=== PATIENT | male | born 1960 | race Caucasian/White ===

== ENCOUNTER → 2020-06-26 11:27 | Outpatient (CLI) | payer OTHER, SELFPAY ==
--- NOTE | ~2020-06-26 | XR_ITS ---
EXAMINATION: XR lumbar spine 2-3V DATE: 06/26/2020 11:45 INDICATION: Low back pain. Lumbar radiculopathy. TECHNIQUE: 3 views of lumbar spine were obtained. COMPARISON: CT abdomen and pelvis 05/21/2019 FINDINGS: There is 3 degrees dextrocurvature of thoracolumbar spine. Vertebral body heights are camryn l. There is mildly decreased disc height at L4-L5 and L5-S1. There is multilevel facet joint osteoart hritis, severe bilaterally from L3-L4 through L5-S1. IMPRESSION: 1. Mild lumbar spondylosis. Reviewed, dictated and finalized at location A. 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 Mild lumbar spondylosis.
--- NOTE | ~2020-06-26 | XR_ITS ---
EXAMINATION: XR_CERV2-3V_CR EXAM DATE: 06/26/2020 11:45 INDICATION: Cervical radiculopathy. TECHNIQUE: Cervical spine frontal, lateral, lateral swimmers, and open-mouth odontoid projections. There is no prior study for comparison. FINDINGS: Mild to moderate disc disease at C6-7. The vertebral body and disc heights are otherwise w ell maintained. Up to moderate cervical arthropathy. The odontoid process is intact. The lateral mas ses of C1 line up with C2. Prevertebral soft tissue and pre-dens space are within normal limits. Lung apices are clear. IMPRESSION: Mild to moderate cervical spondylosis. Reviewed, dictated and finalized at location B. [facility]
== END ==
PROVIDERS: PCP Family Medicine; Visit Provider Physician Assistant
DX: M47.22 Other spondylosis with radiculopathy, cervical region (principal); M47.896 Other spondylosis, lumbar region
CPT/HCPCS: 72040; 72100

== ENCOUNTER → 2021-01-10 11:54 | Outpatient (CLI) | payer OTHER, SELFPAY ==
--- NOTE | ~2021-01-10 | CT_ITS ---
EXAMINATION:CT lung screening DATE: 01/10/2021 12:06 INDICATION: Personal history of tobacco dependence. Current smoker with 30 pack year history. TECHNIQUE: Computed tomography (CT) of the chest was performed without intravenous contrast. Automate d exposure control and iterative reconstruction technique were employed. The dose-length product (DLP ) was 182.56 mGy-cm. COMPARISON: Chest CT 05/21/2018 FINDINGS: There is mild emphysema. Calcified left lung nodules and calcified left hilar and mediastin al lymph nodes are consistent with old granulomatous disease. No pleural effusion. The heart size is normal. There are coronary artery calcifications. No pericardial effusion. There is moderate thoracic spondylosis. IMPRESSION: 1. Lung-RADS category 1: Negative. Continue annual screening with noncontrast low-dose chest CT in 12 months. Reviewed, dictated and finalized at location A. IMPRESSION: 1. Lung-RADS category 1: Negative. Continue annual screening with noncontrast l ow-dose chest CT in 12 months.
== END ==
PROVIDERS: Visit Provider Family Medicine
DX: Z87.891 Personal history of nicotine dependence (principal)
CPT/HCPCS: 71271

== ENCOUNTER 2021-04-26 12:04 | Emergency (ER) | payer OTHER, SELFPAY ==
--- NOTE | ~2021-04-26 | XR_ITS ---
EXAMINATION: XR chest 2V DATE: 04/26/2021 12:24 INDICATION: Cough. TECHNIQUE: Frontal and lateral views of the chest were obtained. COMPARISON: Chest 2 views 05/21/2019, chest CT 01/10/2021 FINDINGS: The chest demonstrates clear lungs without pneumonia, pleural effusion, or pneumothorax. Th e heart size is normal. Calcified left hilar and mediastinal lymph nodes are consistent with old gran ulomatous disease. IMPRESSION: 1. No acute cardiopulmonary disease. Reviewed, dictated and finalized at location A.
--- NOTE | 2021-04-26 12:11 | ED.URI ---
HPI - URI/Sore Throat General Chief Complaint: Upper Respiratory Infection Stated Complaint: Cough Time Seen by Provider: 04/26/21 12:12 Source: patient, RN notes reviewed and old records reviewed Mode of arrival: ambulatory Limitations: no limitations History of Present Illness HPI Narrative: 60-year-old male presents to the [facility] with complaints of a cough for the last 9-10 days. Has taken ibuprofen and some medication that has DM minute. States that for 6 days with the first has slightly improved but the coughing at night is keeping him awake. Denies chest pains, fevers, nausea, vomiting or diarrhea. Denies abdominal pain Her past medical history has had Covid in July 2020. Patient reports that he is fully vaccinated with [employer], last Covid vaccine was September 2020 History of high cholesterol, denies any other medical or surgical history. Related Data Home Medications Medication Instructions Recorded Confirmed atorvastatin 20 mg PO DAILY 04/26/21 04/26/21 Allergies Allergy/AdvReac Type Severity Reaction Status Date / Time Penicillins Allergy Unknown Skin Verified 04/26/21 12:18 Reaction Review of Systems Review of Systems: All systems reviewed & are unremarkable except as noted in HPI and below Constitutional: Constitutional: Reports no additional constitutional complaints, Denies chills and Denies fever(s) ENT: Reports system reviewed and no additional complaints, except as documented, Denies nasal congestion and Denies sore throat Cardiovascular: Cardiovascular: Reports no additional cardiovascular complaints and Denies chest pain Respiratory: Respiratory: Reports as per HPI, Denies chest congestion, Reports cough, Denies dyspnea and Denies wheezing Gastrointestinal: Gastrointestinal: Reports no additional gastrointestinal complaints and Denies abdominal pain Musculoskeletal: Musculoskeletal: Reports no additional musculoskeletal complaints Integumentary/Breasts: Skin/Breast: Reports system reviewed and no additional complaints, except as docu Neurologic: Reports system reviewed and no additional complaints, except as documented Psychiatric: Psychiatric: Reports no additional psychiatric complaints Allergic/Immunologic: Allergic/Immunologic: Reports no additional allergic/immunologic complaints [facility] Past Medical History Medical History (Updated 04/26/21 @ 12:47 by Laney Pepper) High cholesterol Surgical History Surgical History (Updated 04/26/21 @ 12:24 by Laney Pepper) No significant past surgical history Family History Family History Father Family history of elevated blood lipids Family history of cardiovascular disease Acute myocardial infarction Malignant neoplasm of prostate, Onset Age: 58 Grandparent Family history of cardiovascular disease, Onset Age: 60 Cerebrovascular accident Family history of lung cancer Sibling Malignant neoplasm of prostate, Onset Age: 52 Social History Social History Smoking status: Current some day smoker Alcohol intake: current Gender identity (if verbalized by the patient): Male Comments At the time of my signature, I reviewed and agree with the nursing past medical, surgical, social, and family history. There is no relevant family history pertinent to the patient complaint. Exam Const: General: healthy appearing, no acute distress and alert Nutritional Appearance: well nourished Orientation/consciousness: patient oriented x3 Limitations: no limitations HENMT: Head: normal to inspection Ears: external ears normal, TM's normal bilaterally and EAC's normal Eyes: Conjunctivae: conjunctivae normal Pupils: Equal, round and reactive pupils present Neck: Neck: normal visual inspection, no lymphadenopathy and no meningeal signs Chest: Chest palpation & inspection: normal inspection of the chest Resp: Effort & Inspection:
[2021-04-26 12:12] VITALS: BP 158/74; PULSE 83; RESP 16; TEMP 36.8; O2SAT 99
== END 2021-04-26 12:53 | disposition home or self-care (01) ==
PROVIDERS: Emergency Provider Nurse Practitioner; PCP Physician Assistant
DX: J40 Bronchitis, not specified as acute or chronic (principal); F17.200 Nicotine dependence, unspecified, uncomplicated; E78.00 Pure hypercholesterolemia, unspecified; Z86.16 Personal history of COVID-19
CPT/HCPCS: 71046; 99213; G0463

== ENCOUNTER 2021-06-21 00:15 | Day surgery (SDC) | payer OTHER, SELFPAY ==
[2021-06-07 14:42] VITALS: BMI 30.4
[2021-06-21 06:55] VITALS: BP 138/63; PULSE 93; RESP 18; TEMP 36.4; O2SAT 99; BMI 30.5
--- NOTE | 2021-06-21 07:17 | WPDANESEPPF ---
Anes - Initial Pre Proc Eval Procedure: Operation Date: 06/21/21 08:00 Proposed Procedures p Screening Colonoscopy - Deshaun Hernandez MD Date/Time: 06/21/21 07:17 Surgeon: Deshaun Hernandez MD Pre Op Diagnosis: neoplasm screening, hx colon polyps Patient Data Age: 60 Gender: M Height: 1.73 m Weight: 91.2 kg Last Vital Signs Temp 36.4 C L 06/21/21 06:55 Pulse 93 06/21/21 06:55 Resp 18 06/21/21 06:55 BP 138/63 06/21/21 06:55 Pulse Ox 99 06/21/21 06:55 Allergies Allergy/AdvReac Type Severity Reaction Status Date / Time Penicillins Allergy Unknown Skin Verified 06/21/21 07:05 Reaction Home Medications Medication Instructions Recorded Confirmed Type atorvastatin 20 mg tablet 20 mg PO DAILY #90 tablet 05/23/21 06/21/21 Rx Patient hx anesthesia problems: none Family hx anesthesia problems: none Results Review: All pre-operative results and documents have been reviewed as part of the pre-operative evaluation. [facility] Past Medical History Medical History (Updated 04/27/21 @ 00:00 by Carlos Islas) High cholesterol Surgical History Surgical History No significant past surgical history Family History Family History Father Family history of elevated blood lipids Family history of cardiovascular disease Acute myocardial infarction Malignant neoplasm of prostate, Onset Age: 58 Grandparent Family history of cardiovascular disease, Onset Age: 60 Cerebrovascular accident Family history of lung cancer Sibling Malignant neoplasm of prostate, Onset Age: 52 Social History Social History Smoking status: Current every day smoker Tobacco type: cigarettes Alcohol intake: current Living arrangements: with family Gender identity (if verbalized by the patient): Male Spiritual care concerns: No Anes - Eval Final PreProcedure Day of Procedure 06/21/21 07:17 Patient weight: overweight Heart: regular rate and rhythm Lungs: clear to auscultation Airway: Mallampati scale class II Neurological: alert and oriented Last oral intake: >/= 8 hours ASA classification: III Emergent: no Anesthetic plan: proceed Anesthesia type and monitoring: general GIVS and standard monitoring Results Review: All pre-operative results and documents have been reviewed as part of the pre-operative evaluation. Informed Consent: The patient's anesthetic plan and its attendant risks and benefits were discussed with the patient/family/POA. Questions were solicited and answers provided to the satisfaction of the patient/family/POA.
[2021-06-21] MEDS: LACTATED RINGERS 1,000 ML 150 ML IV CONT (07:22)
--- NOTE | 2021-06-21 07:53 | WPDGICN ---
Assessment and Plan Assessment and plan (1) History of colon polyps: Code(s): Z86.010 - Personal history of colonic polyps Status: Acute Assessment and Plan: Patient has a history of adenomatous colon polyp removed from the colon by colonoscopy in 2016. He presents today for neoplasia screening follow-up. GI Consult Note Consult date/time: 06/21/21 07:53 HPI: Deshaun Oquendo is a 60 year old male Presents for screening colonoscopy. Patient reports that his current weight appetite and bowel movements are normal. He denies abdominal pain. He has had no bleeding. Family history is significant is father may have had colon polyps. Patient reports a prior colon polyp removed from the colon a colonoscopy in 2016. He presents today for neoplasia screening. [facility] Past Medical History Medical History (Updated 06/21/21 @ 07:55 by Deshaun Hernandez MD) High cholesterol Surgical History Surgical History No significant past surgical history Family History Family History Father Family history of elevated blood lipids Family history of cardiovascular disease Acute myocardial infarction Malignant neoplasm of prostate, Onset Age: 58 Grandparent Family history of cardiovascular disease, Onset Age: 60 Cerebrovascular accident Family history of lung cancer Sibling Malignant neoplasm of prostate, Onset Age: 52 Social History Social History Smoking status: Current every day smoker Tobacco type: cigarettes Alcohol intake: current Living arrangements: with family Gender identity (if verbalized by the patient): Male Spiritual care concerns: No Meds Home Medications and Allergies Home Medications Medication Instructions Recorded Confirmed Type atorvastatin 20 mg tablet 20 mg PO DAILY #90 tablet 05/23/21 06/21/21 Rx Allergies Allergy/AdvReac Type Severity Reaction Status Date / Time Penicillins Allergy Unknown Skin Verified 06/21/21 07:05 Reaction Vital Signs Vital Signs - 24 hr 06/21/21 06:55 Temperature 97.5 F L Pulse Rate 93 Respiratory Rate 18 Blood Pressure 138/63 Pulse Oximetry 99 Exam Narrative: Physical exam reveals patient to be alert. Vital signs stable. HEENT exam is unremarkable. Patient is anicteric. Lungs are clear to auscultation and percussion. Heart is without murmur or extra sounds. Abdominal exam bowel sounds are present soft nontender with no organomegaly. Digital external rectal exam is normal.
[2021-06-21 08:21] VITALS: BP 85/40; PULSE 66; RESP 16; O2SAT 98
[2021-06-21 08:31] VITALS: BP 99/40; PULSE 73; RESP 17; O2SAT 99
[2021-06-21 08:41] VITALS: BP 119/71; PULSE 75; RESP 15; O2SAT 99
== END 2021-06-21 08:50 | disposition home or self-care (01) ==
PROVIDERS: PCP Physician Assistant; Visit Provider Internal Medicine Gastroenterology
PROC: 0DJD8ZZ Inspection of Lower Intestinal Tract, Via Natural or Artificial Opening Endoscopic (ICD-10-PCS; CPT 45378; principal; 2021-06-21 08:00)
DX: Z12.11 Encounter for screening for malignant neoplasm of colon (principal); D12.4 Benign neoplasm of descending colon; D12.5 Benign neoplasm of sigmoid colon; K57.30 Diverticulosis of large intestine without perforation or abscess without bleeding; K64.8 Other hemorrhoids; E78.00 Pure hypercholesterolemia, unspecified; Z87.891 Personal history of nicotine dependence
CPT/HCPCS: 45385; 88305; J2704; J7120

== ENCOUNTER 2021-09-23 16:57 | Emergency (ER) | payer OTHER, SELFPAY ==
[2021-09-23 17:05] VITALS: BP 160/83; PULSE 82; RESP 18; TEMP 36.6; O2SAT 98
--- NOTE | 2021-09-23 17:23 | ED.URI ---
HPI - URI/Sore Throat General Chief Complaint: Upper Respiratory Infection Stated Complaint: Cough,Congestion Time Seen by Provider: 09/23/21 17:20 Source: patient, RN notes reviewed and old records reviewed Mode of arrival: ambulatory Limitations: no limitations History of Present Illness HPI Narrative: 60 year old male [facility] constant cough which is at times productive for the past 7-10 days . Patient reports that he was here previously with same symptoms and what they gave him cleared him right up. Patient continues to use tobacco daily of 1ppd, denies any shortness of breath or any chest pain. He admits to some clear sinus drainage, denies any sore throat or ear pain. Patient reports that he had no known fevers, chills or sweats, had been taking Mucinex D and NyQuil for his symptoms. MD elicited complaint: cough and other (feels like wheezing at night) Related Data Home Medications Medication Instructions Recorded Confirmed pantoprazole [Protonix] 40 mg PO PRN PRN 09/23/21 09/23/21 Allergies Allergy/AdvReac Type Severity Reaction Status Date / Time Penicillins Allergy Mild Skin Verified 09/23/21 17:07 Reaction Review of Systems Review of Systems: CONSTITUTIONAL: Denies fever, chills, or sweats. EYES: Denies visual changes, redness, or discharge. ENT: Positive for rhinorrhea, congestion, no sore throat, or otalgia. CARDIOVASCULAR: Denies chest pain, palpitations, or edema. RESPIRATORY: Positive for cough denies dyspnea. GASTROINTESTINAL: Denies abdominal pain, nausea, vomiting, or diarrhea. GENITOURINARY: Denies dysuria or hematuria. SKIN: Denies rash or itching. MUSCULOSKELETAL: Denies back pain, joint pain, or myalgia. NEUROLOGIC: Denies headache, numbness, or weakness. PSYCHIATRIC: Denies anxiety or depression. All systems reviewed & are unremarkable except as noted in HPI and below [facility] Past Medical History Medical History (Updated 09/23/21 @ 17:55 by Yamilet Byrne NP) High cholesterol Tobacco abuse Surgical History Surgical History No significant past surgical history Family History Family History Father Family history of elevated blood lipids Family history of cardiovascular disease Acute myocardial infarction Malignant neoplasm of prostate, Onset Age: 58 Grandparent Family history of cardiovascular disease, Onset Age: 60 Cerebrovascular accident Family history of lung cancer Sibling Malignant neoplasm of prostate, Onset Age: 52 Social History Social History Smoking status: Current every day smoker Tobacco type: cigarettes Alcohol intake: current Gender identity (if verbalized by the patient): Male Spiritual care concerns: No Comments At time of signature, agree with nursing past medical, surgical, social and family history. There is no relevant family history pertinent to the presenting complaint Exam Narrative: GENERAL: Well-appearing, well-nourished, and in no acute distress. HEAD: Normocephalic, atraumatic. EYES: PERRLA and EOMI. ENT: Nares patent, clear rhinorrhea or epistaxis. Mucous membranes moist.TM's normal with good light reflex, throat pink with no lesions or exudates, no tonsil enlargement, has had previous lesion removed from tongue. NECK: Supple. no lymphadenopathy CHEST: faint expiratory wheezes scattered on auscultation. No respiratory distress.SAO2 98% on room air HEART: Regular rate and rhythm. No murmur heard. Normal peripheral pulses. ABDOMEN: Soft, nontender, nondistended, normal active bowel sounds. EXTREMITIES: Normal range of motion. No edema. SKIN: Warm, dry, no rash. NEURO: No focal deficits. Alert and oriented x3. Course Course Level of Care: Express Care Visit Vital Signs Vital signs: Vital Signs Temperature 36.6 C 09/23/21 17:05 Pul
== END 2021-09-23 17:44 | disposition home or self-care (01) ==
PROVIDERS: Emergency Provider Registered Nurse; PCP Physician Assistant
DX: J40 Bronchitis, not specified as acute or chronic (principal); F17.210 Nicotine dependence, cigarettes, uncomplicated; E78.00 Pure hypercholesterolemia, unspecified
CPT/HCPCS: 99213; G0463

== ENCOUNTER → 2022-05-26 11:45 | Outpatient (CLI) | payer OTHER, SELFPAY ==
--- NOTE | ~2022-05-26 | CT_ITS ---
EXAMINATION: CT lung screening DATE: 05/26/2022 12:03 INDICATION: Lung cancer screening. Current smoker. TECHNIQUE: Computed tomography (CT) of the chest was performed without intravenous contrast. The dose -length product was 213.88 mGy-cm. Automated exposure control and iterative reconstruction technique were employed. COMPARISON: CT dated 01/10/2021 FINDINGS: Heart size is normal. No thoracic lymphadenopathy. There is evidence for chronic granulomat ous disease. No significant pleural or pericardial effusion. There is emphysema. There is coronary at herosclerosis. Moderate thoracic spondylosis. No focal airspace disease. No noncalcified pulmonary no dules/masses. The upper abdomen is unremarkable. No endobronchial lesions. No pneumothorax. No focal airspace consolidation. IMPRESSION: 1. Lung-RADS category 1: Negative. Continue annual screening with noncontrast low-dose chest CT in 12 months. Reviewed, dictated and finalized at location B. IER CREDIT IMPRESSION: 1. Lung-RADS category 1: Negative. Continue annual screening with noncontrast l ow-dose chest CT in 12 months.
--- NOTE | ~2022-05-26 | XR_ITS ---
EXAM: XR_CERV2-3V_CR DATE: 05/26/2022 11:56 HISTORY: no injury bilat hand numbness for 4 weeks . COMPARISON: 06/26/2020. FINDINGS: Craniocervical association and atlantoaxial joint are aligned. Mild degenerative change at the atlantoaxial joint. No prevertebral soft tissue swelling. Vertebral bodies are aligned. Vertebra l body heights are maintained. Mild multilevel disc space narrowing and marginal osteophytosis/uncove rtebral joint hypertrophy, moderate at C6-7. Mild facet hypertrophy. IMPRESSION: Multilevel degenerative disc disease and facet arthropathy. Reviewed, dictated and finalized at location K. ER SALESMAN
== END ==
PROVIDERS: PCP Physician Assistant; Visit Provider Physician Assistant
DX: Z12.2 Encounter for screening for malignant neoplasm of respiratory organs (principal); M50.30 Other cervical disc degeneration, unspecified cervical region
CPT/HCPCS: 71271; 72040

== ENCOUNTER 2022-11-06 10:16 | Outpatient (NON) | payer OTHER, SELFPAY | END 2022-11-06 10:17 | disposition home or self-care (01) | LOC: ANHLAB 11-07 10:18 | PROVIDERS: PCP Family Medicine; Visit Provider Internal Medicine Gastroenterology | DX: R22.2 Localized swelling, mass and lump, trunk (principal) | CPT/HCPCS: 88305 ==

== ENCOUNTER 2023-03-29 09:25 | Emergency (ER) | payer OTHER, SELFPAY ==
[2023-03-29 10:02] VITALS: BP 122/61; PULSE 68; RESP 18; TEMP 36.6; O2SAT 97
--- NOTE | 2023-03-29 10:55 | ED.GENADULT ---
HPI - General Adult General Chief complaint: Upper Respiratory Infection Stated complaint: Cough,Congestion,Fatigue Time Seen by Provider: 03/29/23 10:56 Source: patient Mode of arrival: ambulatory Limitations: no limitations History of Present Illness HPI narrative: 60-year-old male patient presents to the [facility] with complaints of congestion, runny nose, cough and sinus pressure. Patient denies any chest pain or shortness of breath. Patient is an active smoker. Patient states he did test positive COVID about 2 and half weeks ago by his symptoms from COVID had completely resolved. Patient states he started having these symptoms approximately 3 days ago. Patient states he has tried [id number] NyQuil, DayQuil and Mucinex for symptoms. Related Data Allergies Allergy/AdvReac Type Severity Reaction Status Date / Time Penicillins AdvReac Mild Hives Verified 03/29/23 10:13 Review of Systems Review of Systems: CONSTITUTIONAL: Denies fever, chills, or sweats. EYES: Denies visual changes, redness, or discharge. ENT: Positive rhinorrhea, congestion, denies sore throat, or otalgia. CARDIOVASCULAR: Denies chest pain, palpitations, or edema. RESPIRATORY: positive cough , denies dyspnea. GASTROINTESTINAL: Denies abdominal pain, nausea, vomiting, or diarrhea. GENITOURINARY: Denies dysuria or hematuria. SKIN: Denies rash or itching. MUSCULOSKELETAL: Denies back pain, joint pain, or myalgia. NEUROLOGIC: Denies headache, numbness, or weakness. PSYCHIATRIC: Denies anxiety or depression. [facility] Past Medical History Medical History (Updated 03/29/23 @ 11:07 by KAITY Martinez) Adjustment disorder with depressed mood Benign neoplasm of colon High cholesterol Palpitations Polyp of colon Primary insomnia Psychosexual dysfunction with inhibited sexual excitement Sciatica of right side Tobacco abuse Unspecified hemorrhoids without mention of complication Surgical History Surgical History No significant past surgical history Family History Family History Father Family history of elevated blood lipids Family history of cardiovascular disease Acute myocardial infarction Malignant neoplasm of prostate, Onset Age: 58 Grandparent Family history of cardiovascular disease, Onset Age: 60 Cerebrovascular accident Family history of lung cancer Sibling Malignant neoplasm of prostate, Onset Age: 52 Social History Social History Smoking status: Current every day smoker Tobacco type: cigarettes Alcohol intake: former Substance use: never Lack of Transportation: No Lack of Food: Never True Current Housing: I Have Housing Concerned About Future Housing: No Difficulty Paying Gas/Electric Bills: No Difficulty Paying for Meds: No Currently Unemployed: No Education: Bachelor's Degree Living arrangements: with family Gender identity (if verbalized by the patient): Male Spiritual care concerns: No Agree to blood products: Yes Comments At the time of my signature I agree with nursing past medical history, surgical, social, and family history. There is no relevant family history pertinent to the presenting complaint. Exam Narrative: GENERAL: Well-appearing, well-nourished, and in no acute distress. HEAD: Normocephalic, atraumatic. tenderness noted to frontal maxillary sinuses on palpati EYES: PERRLA and EOMI. ENT: Nares with erythema and edema noted bilaterally, clear rhinorrhea , no epistaxis. Mucous membranes moist. posterior pharynx with postnasal drip present. Bilateral TMs are clear no erythema foreign bodies the canal. NECK: Supple. No lymphadenopathy CHEST: Clear to auscultation. No respiratory distress. HEART: Regular rate and rhythm. No murmur heard. Normal peripheral pulses. ABDOMEN: Soft, nontender, nondistende
== END 2023-03-29 11:10 | disposition home or self-care (01) ==
PROVIDERS: Emergency Provider Nurse Practitioner Family; PCP Family Medicine
DX: J32.9 Chronic sinusitis, unspecified (principal); T78.40XA Allergy, unspecified, initial encounter; F17.210 Nicotine dependence, cigarettes, uncomplicated; E78.00 Pure hypercholesterolemia, unspecified; Z86.16 Personal history of COVID-19
CPT/HCPCS: 99213; G0463

== ENCOUNTER → 2023-06-18 12:44 | Outpatient (CLI) | payer OTHER, SELFPAY ==
--- NOTE | ~2023-06-18 | CT_ITS ---
CT Scan of the Chest without Contrast: Clinical Indication: Lung cancer screening, personal history of nicotine dependence Technique: Contiguous sections were acquired throughout the chest without intravenous contrast. Dose reduction technique was used on this scan by utilizing automated exposure control and iterative recon struction technique. The dose-length product (DLP) was 197.29 mGy-cm. COMPARISON: 05/26/2022 Findings: There is no evidence of any significant mediastinal, hilar or axillary lymphadenopathy. Calcified med iastinal and left hilar lymph nodes are present. The mediastinal soft tissues otherwise appear normal . There is no evidence of pleural or pericardial effusion. Calcified left basilar granuloma present. Additional calcified left lower lobe granuloma present. Images through the upper abdomen reveal no abnormalities. Impression: Lung RADS 2: Benign appearance. 12 month follow-up screening CT advised. Reviewed, dictated and finalized at location . 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 12 month follow-up screening CT advised.
== END ==
PROVIDERS: PCP Family Medicine; Visit Provider Family Medicine
DX: Z12.2 Encounter for screening for malignant neoplasm of respiratory organs (principal); F17.210 Nicotine dependence, cigarettes, uncomplicated
CPT/HCPCS: 71271

== ENCOUNTER 2023-11-12 16:21 | Outpatient (CLI) | payer OTHER, SELFPAY ==
--- NOTE | ~2023-11-12 | XR_ITS ---
EXAMINATION: XR hip LT min 2V DATE: 11/12/2023 16:51 INDICATION: Left hip pain TECHNIQUE: Anteroposterior and frog-leg lateral views of the left hip were obtained. COMPARISON: CT abdomen pelvis dated 05/21/2019 FINDINGS: Alignment is normal. No fracture or suspected osteonecrosis. Mild left hip osteoarthritis with body builder ior predominant nonuniform joint space narrowing best appreciated on the prior CT imaging. Bilateral vasectomy clips at the scrotum. Soft tissues are otherwise unremarkable. IMPRESSION: 1. Mild left hip osteoarthritis. Reviewed, dictated and finalized at location A.
== END 2023-11-12 16:22 ==
PROVIDERS: PCP Orthopaedic Surgery; Visit Provider Family Medicine
DX: M16.12 Unilateral primary osteoarthritis, left hip (principal)
CPT/HCPCS: 73502

== ENCOUNTER 2023-12-25 10:31 | Outpatient (CLI) | payer OTHER, SELFPAY ==
--- NOTE | ~2023-12-25 | CT_ITS ---
EXAMINATION: CT inject muscle 1-2 w imaging DATE: 12/25/2023 11:50 INDICATION: Piriformis muscle pain TECHNIQUE: The procedure including the risks and benefits was discussed with the patient. Risks discu ssed included bleeding, infection, nerve injury and allergic reaction. The patient understood the ris ks and agreed to proceed. The patient was placed prone and the skin overlying the medial left buttoc k was prepped and draped in usual sterile fashion. Anesthetic was administered with 1% lidocaine sub cutaneously. A 22-gauge spinal needle was advanced under CT guidance to the center of the left pirif ormis muscle belly. 0.5 mL Omnipaque-350 was injected to confirm positioning of the needle tip. A 1:1 mixture of 80 mg/mL Depo-Medrol: 1% lidocaine was injected for total dose of 80 mg Depo-Medrol. The needle was removed and the entry site was cleaned and dressed. There were no immediate complications . The dose-length product was 158.74 mGy-cm. FINDINGS: CT images demonstrate the needle tip and small amount of injected contrast centrally within the left piriformis muscle belly. IMPRESSION: 1. Successful CT-guided left piriformis muscle steroid injection. Reviewed, dictated and finalized at location A.
== END 2023-12-25 10:32 | disposition home or self-care (01) ==
PROVIDERS: PCP Family Medicine; Visit Provider Nurse Practitioner Family
DX: G57.02 Lesion of sciatic nerve, left lower limb (principal)
CPT/HCPCS: 20552; 77012; J1010

== ENCOUNTER 2024-07-20 17:07 | Emergency (ER) | payer OTHER, SELFPAY ==
--- NOTE | ~2024-07-20 | CT_ITS ---
EXAMINATION: CT abdomen pelvis wo con DATE: 07/20/2024 17:28 INDICATION: Right flank pain TECHNIQUE: Computed tomography (CT) of the abdomen and pelvis was performed without intravenous contr ast. The dose-length product was 612.78 mGy-cm. Automated exposure control and iterative reconstructi on technique were employed. COMPARISON: CT dated 05/21/2019 FINDINGS: Calcified granuloma left lower lobe. There is dependent atelectasis. Heart size normal. The re are calcified granulomas of the spleen. Calcified granulomas of the liver. Gallbladder is contract ed. The pancreas, adrenal glands are unremarkable. There are punctate 2 mm bilateral nonobstructing r enal stones. There is atherosclerosis of the aorta without aneurysm. No lymphadenopathy. There are barton rgical changes suggesting prior tubal ligation. No free air or free fluid. No focal lytic or blastic lesions. IMPRESSION: 1. Nonobstructing bilateral nephrolithiasis. Reviewed, dictated and finalized at location A. OR [facility]
[2024-07-20 17:10] VITALS: BP 211/82; PULSE 90; RESP 18; TEMP 36.6; O2SAT 99
--- NOTE | 2024-07-20 17:13 | ED.BACK ---
HPI - Back Pain/Injury General Chief Complaint: Back Pain/Injury <Grecia Gonzales PA-C - Last Filed: 07/20/24 17:15> Stated Complaint: I think I have a kidney stone <Grecia Gonzales PA-C - Last Filed: 07/20/24 17:15> Time Seen by Provider: 07/20/24 18:06 <Grecia Gonzales PA-C - Last Filed: 07/20/24 17:15> Focused HPI: 63-year-old male with history of GERD, hypertension, lumbar radiculopathy, CAD and kidney stones presents to the emergency department with concerns for kidney stone. Patient states yesterday he began having pain in the right flank/low back that radiates down to the front of his leg into his knee. He states he is concerned this is a kidney stone as it feels similar to his prior kidney stone 1 month ago. He states it does not feel like sciatica to him. He denies dysuria, hematuria, abdominal pain, saddle anesthesia, injury or trauma, bowel or bladder changes. Has been taking 800 mg of ibuprofen without improvement. GENERAL: Well-appearing, well-nourished, and in no acute distress. HEAD: Normocephalic, atraumatic. CHEST: Clear to auscultation. ?No respiratory distress. BACK: Tenderness to palpation throughout the right flank, extending over the R SI. Positive seated straight leg raise, no saddle anesthesia HEART: Regular rate and rhythm.? NEURO: ?Alert and oriented x3. Patient screened in triage and initial orders placed.? ?Additional care and disposition to be based upon?diagnostic testing and treatment. <Grecia Gonzales PA-C - Last Filed: 07/20/24 17:15> Source: patient <Davis Kumar MD - Last Filed: 07/20/24 20:04> Limitations: no limitations <Davis Kumar MD - Last Filed: 07/20/24 20:04> History of Present Illness HPI Narrative: ] 63-year-old with a history of hypertension, hyperlipidemia, kidney stones here with the complaints of right-sided lower back pain radiating into his right side of his leg for past day or so. He denies any trauma. No history of blood in the urine. No fever or chills. Patient states occasionally his right leg gets numb. No previous history of DJD of the spine or disc herniation. Denies any bladder or bowel incontinence. <Davis Kumar MD - Last Filed: 07/20/24 20:04> MD elicited complaint: back pain <Davis Kumar MD - Last Filed: 07/20/24 20:04> Onset (ago): day(s) (2) <Davis Kumar MD - Last Filed: 07/20/24 20:04> Timing: constant <Davis Kumar MD - Last Filed: 07/20/24 20:04> Severity: moderate <Davis Kumar MD - Last Filed: 07/20/24 20:04> Quality: aching <Davis Kumar MD - Last Filed: 07/20/24 20:04> Location: lumbar spine <Davis Kumar MD - Last Filed: 07/20/24 20:04> Radiation: right upper leg <Davis Kumar MD - Last Filed: 07/20/24 20:04> Exacerbating factors: none <Davis Kumar MD - Last Filed: 07/20/24 20:04> Relieving factors: immobilization <Davis Kumar MD - Last Filed: 07/20/24 20:04> Associated symptoms: denies other symptoms <Davis Kumar MD - Last Filed: 07/20/24 20:04> Related Data Allergies/Adverse Reactions: Allergies Allergy/AdvReac Type Severity Reaction Status Date / Time Penicillins AdvReac Mild Hives Verified 07/20/24 17:08 <Grecia Gonzales PA-C - Last Filed: 07/20/24 17:15> Review of Systems Review of Systems: All systems reviewed & are unremarkable except as noted in HPI and below <Davis Kumar MD - Last Filed: 07/20/24 20:04> Constitutional: Constitutional: Reports no additional constitutional complaints <Davis Kumar MD - Last Filed: 07/20/24 20:04> ENT: Reports system reviewed and no additional complaints, except as documented <Davis Kumar MD - Last Filed: 07/20/24 20:04> Respiratory: Respiratory: Reports no additional respiratory complaints <Davis Kumar MD - Last Filed: 07/20/24 20:04> Gastrointestinal: Gastrointestinal: Reports no additional gastrointestinal complaints <Davis Kumar MD - Last Filed: 07/20/24 20:04> Genitourinary: Genitourinary: Reports no additional male genitourinary complaints <Davis Kumar MD - Last Filed: 07/20/24 20:04> Musculoskeletal: Musculoskeletal: Reports as per HPI <Davis Kumar MD - Last Filed: 07/20/24 20:04> Neurologic: Reports system reviewed and no additional complaints, except as documented <Davis Kumar MD - Last Filed: 07/20/24 20:04> Psychiatric: Psychiatric: Reports no additional psychiatric complaints <Davis Kumar MD - Last Filed: 07/20/24 20:04> PMFSH Past Medical History Medical History: Medical History Lumbar spine pain Foot drop, left Piriformis syndrome of left side Left hip pain Unspecified hemorrhoids without mention of complication Sciatica of right side Psychosexual dysfunction with inhibited sexual excitement Primary insomnia Polyp of colon Palpitations Benign neoplasm of colon Adjustment disorder with depressed mood Tobacco abuse High cholesterol <Grecia Gonzales PA-C - Last Filed: 07/20/24 17:15> Surgical History Surgical History: Surgical History No significant past surgical history <Grecia Gonzales PA-C - Last Filed: 07/20/24 17:15> Family History Family History: Family History Father Family history of elevated blood lipids Family history of cardiovascular disease Acute myocardial infarction Malignant neoplasm of prostate, Onset Age: 58 Grandparent Family history of cardiovascular disease, Onset Age: 60 Cerebrovascular accident Family history of lung cancer Sibling Malignant neoplasm of prostate, Onset Age: 52 <Grecia Gonzales PA-C - Last Filed: 07/20/24 17:15> Social History Social History: Social History Social History: caffeine - 4 cups coffee daily Smoking status: Current every day smoker Tobacco type: cigarettes Alcohol intake: former Substance use: never Do You Feel Safe in your Home?: Yes Lack of Transportation: No Lack of Food: Never True Current Housing: I Have Housing Concerned About Future Housing: No Difficulty Paying Gas/Electric Bills: No Difficulty Paying for Meds: No Currently Unemployed: No Education: Bachelor's Degree Difficulty w/ Childcare or Family Care: No Living arrangements: with family Occupation/Education: occupation 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 HEAD: Normocephalic, atraumatic. EYES: PERRLA and EOMI. ENT: Nares clear, no rhinorrhea or epistaxis. Mucous membranes moist. NECK: Supple. CHEST: Clear to auscultation. No respiratory distress. HEART: Regular rate and rhythm. No murmur heard. Normal peripheral pulses. ABDOMEN: Soft, nontender, nondistended, normal active bowel sounds. EXTREMITIES: Normal range of motion. No edema. Examination of the lower back no spine tenderness SLR positive on the right at 30 SKIN: Warm, dry, no rash. NEURO: No focal deficits. Alert and oriented x3. PSYCH: Normal mood and affect. <Davis Kumar MD - Last Filed: 07/20/24 20:04> Course Course Emergency Course: Notified patient about his lab work, CT findings cause of his pain most likely is MSK pain advised him to take muscle relaxers and pain medication as prescribed. <Davis Kumar MD - Last Filed: 07/20/24 20:04> Vital Signs Vital signs: Vital Signs Temperature 36.6 C 07/20/24 17:10 Pulse Rate 90 07/20/24 17:10 Respiratory Rate 18 07/20/24 17:10 Blood Pressure 211/82 H 07/20/24 17:10 Pulse Oximetry 99 07/20/24 17:10 Oxygen Delivery Room Air 07/20/24 17:10 Temperature 36.6 C 07/20/24 17:10 Pulse Rate 90 07/20/24 17:10 Respiratory Rate 18 07/20/24 17:10 Blood Pressure 211/82 H 07/20/24 17:10 Pulse Oximetry 99 07/20/24 17:10 Oxygen Delivery Room Air 07/20/24 17:10 <Grecia Gonzales PA-C - Last Filed: 07/20/24 17:15> Vital Signs Temperature 36.6 C 07/20/24 17:10 Pulse Rate 90 07/20/24 17:10 Respiratory Rate 18 07/20/24 17:10 Blood Pressure 211/82 H 07/20/24 17:10 Pulse Oximetry 99 07/20/24 17:10 Oxygen Delivery Room Air 07/20/24 17:10 Temperature 36.6 C 07/20/24 17:10 Pulse Rate 90 07/20/24 17:10 Respiratory Rate 18 07/20/24 17:10 Blood Pressure 211/82 H 07/20/24 17:10 Pulse Oximetry 99 07/20/24 17:10 Oxygen Delivery Room Air 07/20/24 17:10 <Davis Kumar MD - Last Filed: 07/20/24 20:04> MDM - Back Pain/Injury Medical Records Attestation: I reviewed the patient's medical records. <Davis Kumar MD - Last Filed: 07/20/24 20:04> Lab Data Attestation: I reviewed the patient's lab results. <Davis Kumar MD - Last Filed: 07/20/24 20:04> Result diagrams: 07/20/24 17:59 07/20/24 17:59 <Grecia Gonzales PA-C - Last Filed: 07/20/24 17:15> Labs: Lab Results 07/20/24 Range/Units 17:59 WBC 8.2 (4.5-10.0) K/mm3 RBC 5.18 (4.6-6.20) M/mm3 Hgb 15.8 (14.0-18.0) g/dL Hct 46.1 (42.0-52.0) % MCV 89.0 (80-100) fl MCH 30.5 (26-34) pg MCHC 34.3 (32-36) g/dl RDW 13.2 (11.5-14.5) % Plt Count 247 (150-375) k/mm3 MPV 8.7 (7.4-10.4) fl Immature Gran % (Auto) 0.1 (0-0.5) % Neut % (Auto) 78.2 H (45.5-73.1) % Lymph % (Auto) 12.8 L (18.3-44.2) % Calloway % (Auto) 7.8 (2.6-8.5) % Eos % (Auto) 0.7 (0-4.4) % Baso % (Auto) 0.4 (0.2-1.2) % Lymph # (Auto) 1.05 (0.9-3.2) K/mm3 Calloway # (Auto) 0.6 (0.1-0.6) K/mm3 Eos # (Auto) 0.1 (0-0.3) K/mm3 Baso # (Auto) 0.0 (0.0-0.1) K/mm3 Abs Immat Gran (auto) 0.01 (0.00-0.031) K/mm3 Absolute Neuts (auto) 6.4 (1.3-6.7) K/mm3 Absolute Nucleated RBC 0.000 (0.0-0.012) K/mm3 Nucleated RBC % 0.0 (0.0-0.2) % Sodium 136 L (137-145) mmol/L Potassium 4.4 (3.4-5.0) mmol/L Chloride 102 (98-107) mmol/L Carbon Dioxide 27 (22-30) mmol/L Anion Gap 7 (4-12) mmol/L BUN 24 H D (9-20) mg/dL Creatinine 0.97 (0.7-1.3) mg/dL Estim Creat Clear Calc 67 ml/min Estimated GFR > 60 (59 - ) Glucose 103 (65-110) mg/dL Calcium 9.0 (8.4-10.2) mg/dL Total Bilirubin 0.5 (0.2-1.3) mg/dL AST 25 (17-59) U/L ALT 24 (6-50) U/L Alkaline Phosphatase 83 (38-126) U/L Total Protein 8.0 (6.3-8.2) g/dL Albumin 4.3 (3.5-5.1) g/dL Urine Color Yellow (Yellow) Urine Appearance Clear (Clear) Urine pH 7.0 (5.0-9.0) Ur Specific Slaughter 1.015 (1.001-1.035) Urine Protein Trace (Negative) mg/dL Urine Glucose (UA) Negative (Negative) mg/dL Urine Ketones Trace H (Negative) mg/dL Ur Blood (Man) 1+ H (Negative) Urine Nitrate Negative (Negative) Urine Bilirubin Negative (Negative) Urine Urobilinogen 0.2 (<2.0) mg/dL Leukocyte Esterase Rfl Negative (Negative) SLOANE/UL Urine RBC 11-20 H (0-2) /hpf Urine WBC 0-5 (0-3) /hpf Ur Squamous Epith Cells None seen (Few) /hpf Urine Bacteria None seen /hpf Urine Casts 0-2 <Grecia Gonzales PA-C - Last Filed: 07/20/24 17:15> Lab Results 07/20/24 Range/Units 17:59 WBC 8.2 (4.5-10.0) K/mm3 RBC 5.18 (4.6-6.20) M/mm3 Hgb 15.8 (14.0-18.0) g/dL Hct 46.1 (42.0-52.0) % MCV 89.0 (80-100) fl MCH 30.5 (26-34) pg MCHC 34.3 (32-36) g/dl RDW 13.2 (11.5-14.5) % Plt Count 247 (150-375) k/mm3 MPV 8.7 (7.4-10.4) fl Immature Gran % (Auto) 0.1 (0-0.5) % Neut % (Auto) 78.2 H (45.5-73.1) % Lymph % (Auto) 12.8 L (18.3-44.2) % Calloway % (Auto) 7.8 (2.6-8.5) % Eos % (Auto) 0.7 (0-4.4) % Baso % (Auto) 0.4 (0.2-1.2) % Lymph # (Auto) 1.05 (0.9-3.2) K/mm3 Calloway # (Auto) 0.6 (0.1-0.6) K/mm3 Eos # (Auto) 0.1 (0-0.3) K/mm3 Baso # (Auto) 0.0 (0.0-0.1) K/mm3 Abs Immat Gran (auto) 0.01 (0.00-0.031) K/mm3 Absolute Neuts (auto) 6.4 (1.3-6.7) K/mm3 Absolute Nucleated RBC 0.000 (0.0-0.012) K/mm3 Nucleated RBC % 0.0 (0.0-0.2) % Sodium 136 L (137-145) mmol/L Potassium 4.4 (3.4-5.0) mmol/L Chloride 102 (98-107) mmol/L Carbon Dioxide 27 (22-30) mmol/L Anion Gap 7 (4-12) mmol/L BUN 24 H D (9-20) mg/dL Creatinine 0.97 (0.7-1.3) mg/dL Estim Creat Clear Calc 67 ml/min Estimated GFR > 60 (59 - ) Glucose 103 (65-110) mg/dL Calcium 9.0 (8.4-10.2) mg/dL Total Bilirubin 0.5 (0.2-1.3) mg/dL AST 25 (17-59) U/L ALT 24 (6-50) U/L Alkaline Phosphatase 83 (38-126) U/L Total Protein 8.0 (6.3-8.2) g/dL Albumin 4.3 (3.5-5.1) g/dL Urine Color Yellow (Yellow) Urine Appearance Clear (Clear) Urine pH 7.0 (5.0-9.0) Ur Specific Slaughter 1.015 (1.001-1.035) Urine Protein Trace (Negative) mg/dL Urine Glucose (UA) Negative (Negative) mg/dL Urine Ketones Trace H (Negative) mg/dL Ur Blood (Man) 1+ H (Negative) Urine Nitrate Negative (Negative) Urine Bilirubin Negative (Negative) Urine Urobilinogen 0.2 (<2.0) mg/dL Leukocyte Esterase Rfl Negative (Negative) SLOANE/UL Urine RBC 11-20 H (0-2) /hpf Urine WBC 0-5 (0-3) /hpf Ur Squamous Epith Cells None seen (Few) /hpf Urine Bacteria None seen /hpf Urine Casts 0-2 <Davis Kumar MD - Last Filed: 07/20/24 20:04> Imaging Data Radiologist's impression: ITS Impressions Abdomen/Pelvis CT 07/20/24 17:32 IMPRESSION: 1. Nonobstructing bilateral nephrolithiasis. <Davis Kumar MD - Last Filed: 07/20/24 20:04> Discharge Plan Discharge Clinical Impression: Lumbar spine pain <Grecai Gonzales PA-C - Last Filed: 07/20/24 17:15> Patient Disposition: Home, Self-Care <Grecia Gonzales PA-C - Last Filed: 07/20/24 17:15> Condition: Stable <Grecia Gonzales PA-C - Last Filed: 07/20/24 17:15> Instructions: Back Pain (ED) <Grecia Gonzales PA-C - Last Filed: 07/20/24 17:15> Patient Language: Macedonian <Grecia Gonzales PA-C - Last Filed: 07/20/24 17:15> Prescriptions: New cyclobenzaprine 5 mg tablet 5 mg PO TID PRN (Reason: muscle spasm) Qty: 20 0RF hydrocodone-acetaminophen 5-325 mg tablet 1 tablet PO Q6H PRN (Reason: pain) Qty: 20 0RF No Action atorvastatin 20 mg tablet 20 mg PO DAILY Qty: 90 2RF amlodipine 5 mg tablet 5 mg PO DAILY Qty: 90 2RF pantoprazole [Protonix] 40 mg tablet,delayed release (DR/EC) 40 mg PO DAILY PRN (Reason: Acid Reflux) Qty: 90 1RF <Grecia Gonzales PA-C - Last Filed: 07/20/24 17:15> Follow-up/Referrals: Yandel Moody DO [Physician] - <Grecia Gonzales PA-C - Last Filed: 07/20/24 17:15> Time of Disposition: 20:04 <Grecia Gonzales PA-C - Last Filed: 07/20/24 17:15> 20:04 <Davis Kumar MD - Last Filed: 07/20/24 20:04>
[2024-07-20 18:08] LABS: Basophils Percent Auto 0.4 % (0.2-1.2); Eosinophils Absolute Auto 0.1 K/mm3 (0-0.3); Eosinophils Percent Auto 0.7 % (0-4.4); Hematocrit 46.1 % (42.0-52.0); Hemoglobin 15.8 g/dL (14.0-18.0); Immature Granulocyte Absolute 0.01 K/mm3 (0.00-0.031); Immature Granulocyte Percent A 0.1 % (0-0.5); Lymphocytes Absolute Auto 1.05 K/mm3 (0.9-3.2); Lymphocytes Percent Auto 12.8 % (18.3-44.2); Mean Corpuscular HGB Conc 34.3 g/dl (32-36); Mean Corpuscular Hemoglobin 30.5 pg (26-34); Mean Platelet Volume 8.7 fl (7.4-10.4); Monocytes Absolute Auto 0.6 K/mm3 (0.1-0.6); Monocytes Percent Auto 7.8 % (2.6-8.5); Neutrophils Absolute Auto 6.4 K/mm3 (1.3-6.7); Neutrophils Percent Auto 78.2 % (45.5-73.1); Platelet Count Result 247 k/mm3 (150-375); Red Blood Count 5.18 M/mm3 (4.6-6.20); Red Cell Distribution Width 13.2 % (11.5-14.5); White Blood Count 8.2 K/mm3 (4.5-10.0)
[2024-07-20 18:17] LABS: Add Urine Microscopic? YES; Appearance Urine Clear (Clear); Bacteria Urine None Seen /hpf; Bilirubin Urine Negative (Negative); Blood Urine 1+ (Negative); Color Urine Yellow (Yellow); Glucose Urine UA Negative (Negative); Ketones Urine Trace mg/dL (Negative); Leukocyte Esterase Ur Negative LEU/UL (Negative); Nitrate Urine Negative (Negative); Non Pathogenic Casts 0-2; Protein Urine Trace mg/dL (Negative); Specific Grav Ur 1.015 (1.001-1.035); Squamous Epithelial Cell Urine None Seen /hpf (Few); Urobilinogen Urine 0.2 mg/dL (<2.0); WBC Urine 0-5 /hpf (0-3)
[2024-07-20 18:20] LABS: Alanine Aminotransferase 24 U/L (6-50); Albumin Level 4.3 g/dL (3.5-5.1); Alkaline Phosphatase 83 U/L (38-126); Anion Gap 7 mmol/L (4-12); Aspartate Amino Transferase 25 U/L (17-59); Bilirubin,Total 0.5 mg/dL (0.2-1.3); Blood Urea Nitrogen 24 mg/dL (9-20); Carbon Dioxide 27 mmol/L (22-30); Chloride 102 mmol/L (98-107); Estimated CRCL calculation 67 ml/min; Estimated Glomerular Filt Rate > 60; Glucose 103 mg/dL (65-110); Potassium 4.4 mmol/L (3.4-5.0); Sodium 136 mmol/L (137-145)
[2024-07-20] MEDS: KETOROLAC 15 MG/ML VIAL (*BKC) IV PUSH (19:06)
[2024-07-20 20:50] VITALS: BP 170/62; PULSE 95; RESP 16; O2SAT 97
== END 2024-07-20 21:04 | disposition home or self-care (01) ==
PROVIDERS: Physician Assistant; Emergency Provider Family Medicine
DX: M54.50 Low back pain, unspecified (principal); I10 Essential (primary) hypertension; I25.10 Atherosclerotic heart disease of native coronary artery without angina pectoris; E78.00 Pure hypercholesterolemia, unspecified; K21.9 Gastro-esophageal reflux disease without esophagitis; F17.210 Nicotine dependence, cigarettes, uncomplicated; F51.01 Primary insomnia; Z86.0100 Personal history of colon polyps, unspecified; Z87.442 Personal history of urinary calculi; N20.0 Calculus of kidney; Z79.899 Other long term (current) drug therapy
CPT/HCPCS: 36415; 74176; 80053; 81001; 85025; 96374; 99284; J1885

== ENCOUNTER 2025-02-28 15:51 | Outpatient (CLI) | payer OTHER, SELFPAY ==
--- NOTE | ~2025-02-28 | CT_ITS ---
EXAMINATION: CT lung screening DATE: 02/28/2025 16:02 INDICATION: Personal history of nicotine dependence TECHNIQUE: Computed tomography (CT) of the chest was performed without intravenous contrast. The dose-length product was 119.83 mGy-cm. Automated exposure control and iterative reconstruction technique were employed. COMPARISON: CT dated 06/18/2023 FINDINGS: No significant pleural or pericardial effusion. No thoracic lymphadenopathy. There are calcified granulomas. There are calcified mediastinal and left hilar lymph nodes, consistent with chronic granulomatous disease. There are no new pulmonary nodules or masses. Mild thoracic spondylosis. IMPRESSION: 1. Lung-RADS category 1: Negative. Continue annual screening with noncontrast low-dose chest CT in 12 months. Reviewed, dictated and finalized at location O. IMPRESSION: 1. Lung-RADS category 1: Negative. Continue annual screening with noncontrast l ow-dose chest CT in 12 months.
== END 2025-02-28 15:52 | disposition home or self-care (01) ==
LOC: MICIMG 15:52
PROVIDERS: PCP Family Medicine; Visit Provider Family Medicine
DX: Z12.2 Encounter for screening for malignant neoplasm of respiratory organs (principal); Z87.891 Personal history of nicotine dependence
CPT/HCPCS: 71271

== ENCOUNTER 2025-05-01 17:26 | Emergency (ER) | payer OTHER, SELFPAY ==
[2025-05-01 17:29] VITALS: BP 156/73; PULSE 102; RESP 16; TEMP 37; O2SAT 98
--- OUTSIDE RECORDS SUMMARY | 2025-05-01 17:30 | XMS_ITS | Encounter Summary ---
Author Organization [facility] - [facility] Address [address] [place] [id number] Care Team Providers Care Security Operations Analyst Name Role Phone Tari Jane Primary Care Provider [phone] Encounter Details Date Type Department Care Team (Late st Contact Info) Description 12/28/2020 Touch Payments Message [employer] [facility] Medical Group Family & [facility] [id number] [place] [phone] [facility] Medication refill Social History Tobacco Use Types Packs/Day Years Used Date Smoking Tobacco: Every Day Cigarettes Smokeless Tobacco: Never Alcohol Use Standard Drinks/Week Comments Yes 0 (1 standard drink = 0.6 oz pur e alcohol) rare PHQ-2 Answer Date Recorded PHQ-2 Score - If the patient scores above 3, please move on to questions 3-9 0 08/30/2020 Sex and Gender Information Value Date Recorded Sex Assigned at Not on file 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
--- OUTSIDE RECORDS SUMMARY | 2025-05-01 17:30 | XMS_ITS | Clinical Summary ---
Author Organization [facility] Address [address] [place] [address] Care Team Providers Care 3D Animator Name Role Phone Yandel Moody DO Primary Care Provider [phone] Medications atorvastatin (LIPITOR) 20 mg tablet Take 20 mg by mouth daily. 02/08/2024 Active amLODIPine (NORVASC) 5 mg tablet Take 1 Tablet by mouth daily. 02/04/2024 Active Active Problems No known active problems Encounters Date Type Department Care Team Description 04/25/2025 External Device Data [facility] ABSTRACTION Provider, Abstract 03/22/2025 External Device Data [facility]STRACTION Provider, Abstract 03/21/2025 External Device Data [facility]STRACTION Provider, Abstract from Last 3 Months Family History Medical History Relation Name Comments Hypertension Brother High Cholesterol Father Hypertension Father Other Father tobacco use Other Mother tobacco use Relation Name Status Comments Brother Father Mother Social History Tobacco Use Types Packs/Day Years Used Date Smoking Tobacco: Every Day Cigarettes Alcohol Use Standard Drinks/Week Comments Never 0 (1 standard drink = 0.6 oz pur e alcohol) Sex and Gender Information Value Date Recorded Sex Assigned at Not on file Legal Sex Male 11:06 AM CDT Gender Identity Not on file Sexual Orientation Not on file 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 Not on file Not on file Last Filed Vital Signs Vital Sign Reading Time Taken Comments Blood Pressure 151/79 03/30/2024 1:56 PM CDT Pulse 71 03/30/2024 1:56 PM CDT Temperature - - Respiratory Rate - - Oxygen Saturation 94% 03/30/2024 1:56 PM CDT Inhaled Oxygen Concentration - - Weight 79.8 kg (176 lb) 03/30/2024 1:56 PM CDT Height 172.7 cm (5' 8) 03/30/2024 1:56 PM CDT Body Mass Index 26.76 03/30/2024 1:56 PM CDT Plan of Treatment Health Maintenance Due Date Last Done Comments DTAP/TDAP/TD VACCINES (1 - Tdap) 10/19/1979 COLORECTAL SCREENING 2005 Colorectal Cancer Screening 2005 FIT-DNA Q 3 years 2005 FIT/FOBT Q 1 year 2005 Flex Sig/CT Colonography Q 5 years 2005 INFLUENZA VACCINE (#1) 2025 COVID-19 Vaccine (2 - season) 03/06/202501/2021 RSV VACCINE (60+ or ) (1 - 1-dose 75+ series) 10/19/2035 ZOSTER VACCINE Completed 09/06/2019, 06/14/2019 Insurance [employer] MANAGED CHOICE A[employer] MANAGED CHOICE Care Teams 3D Animator Relationship Specialty Start Date End Date Yandel Moody DO [address] [phone] PCP - General Family Practice 03/30/24
--- OUTSIDE RECORDS SUMMARY | 2025-05-01 17:30 | XMS_ITS | Clinical Summary ---
Author Organization [facility] [address] Address [address] [place] [id number] Care Team Providers Care Hat Liner Name Role Phone Ned Garcia MD Primary Care Provider [phone] Allergies No known active allergies Medications amLODIPine (NORVASC) 5 mg tablet Oral; Duration: 90 Days 02/04/2024 Active atorvastatin (LIPITOR) 20 mg tablet Oral; Duration: 90 Days 06/28/2020 Active cholecalciferol (VITAMIN D-3) 50,000 unit capsule TAKE 1 CAPSULE BY MOUTH ONCE A MONTH 01/11/[address] (PROTONIX) 40 mg EC tablet Oral; Duration: 90 Days 10/31/2019 Active Active Problems Problem Noted Date Diagnosed Date Lumbar radiculopathy 04/05/2025 Encounters Date Type Department Care Team Description 04/05/2025 3:22 PM CDT - 04/05/2025 11:59 PM CDT Hospital Encounter [facility] [address] [place] [address] A, [facility] [address] [place] [address] Codey Rivera MD Lumbar radiculopathy (Primary Dx) Discharge Disposition: Discharge to home or self care 03/09/2025 3:45 PM CDT Ancillary Procedure [facility] Imaging at [address] [phone] Bilateral leg pain 03/09/2025 3:00 PM CDT Office Visit [facility] Orthopedic and Sports Medicine [address] [place] [id number] Rebecca Patel PA Lumbar radiculopathy (Primary Dx); Sacroiliitis 03/09/2025 Telephone [facility] Sports Medicine and Primary Care at [address] [place] [address] Rebecca Patel PA from Last 3 Months Medical History Medical History Date Comments Hypertension Sleep apnea Family History Medical History Relation Name Comments Cancer Brother Cancer Father Heart disease Father Relation Name Status Comments Brother Father Social History Tobacco Use Types Packs/Day Years Used Date Smoking Tobacco: Every Day Cigarettes Passive Smoke Exposure: Current Smokeless Tobacco: Current Tobacco Cessation:Ready to Q uit: Yes; Counseling Given: Not Answered Passive Exposure Comments:smoke a half a pack day Alcohol Use Standard Drinks/Week Comments Never 0 (1 standard drink = 0.6 oz pur e alcohol) PHQ-2 Answer Date Recorded PHQ-2 Total Score (If total score is 3 or more points, staff should administer the PHQ-9) 0 04/05/2025 PHQ-9 Answer Date Recorded PHQ-9 Total Score 2 04/05/2025 AUDIT-C Answer Date Recorded Q1: How often do you have a drink containing alcohol? Never 03/09/2025 Q2: How many drinks containi ng alcohol do you have on a typical day when you are drinking? Patient does not drink Q3: How often do you have si x or more drinks on one occasion? Never 03/09/2025 Sex and Gender Information Value Date Recorded Sex Assigned at Not on file Legal Sex Male 3:23 PM CDT Gender Identity Not on file Sexual Orientation Not on file Obstetrics History Last Filed Vital Signs Vital Sign Reading Time Taken Comments Blood Pressure 134/72 04/05/2025 3:52 PM CDT Pulse 87 04/05/2025 3:52 PM CDT Temperature - - Respiratory Rate 16 04/05/2025 3:52 PM CDT Oxygen Saturation 96% 04/05/2025 3:52 PM CDT Inhaled Oxygen Concentration - - Weight 81.6 kg (180 lb) 03/09/2025 2:56 PM CDT Height 172.7 cm (5' 8) 03/09/2025 2:56 PM CDT Body Mass Index 27.37 03/09/2025 2:56 PM CDT Plan of Treatment Health Maintenance Due Date Last Done Comments Colon Cancer Screening-Colonoscopy 1960 Hepatitis C Screening 1960 Prostate Cancer Screening-PSA 1960 Hepatitis B Screening 1978 Regular Well Visit/Exam 18-64 1978 Pneumococcal vaccine <65 (2 of 2 - PCV) 03/09/2022 03/09/2021 DTaP/Tdap/Td Vaccine (2 - Td or Tdap) 04/04/2023 04/04/2013, 11/10/2005 Influenza Vaccine (#1) 2025 , 06/10/2023, 04/15/2022, Additional history exists Depression Screening 04/05/2026 04/05/2025, 04/05/20 25 Zoster Vaccine Completed 09/06/2019, 06/14/2019 Covid-19 Vaccine Completed 07/17/2024, , 04/15/2022, Additional history exists Procedures Procedure Name Priority Date/Time Associated Diagnosis Comments XR HIPS BILATERAL 3 OR 4 VW Schedule Routine, Read Routine (OP Routine) 03/09/2025 3:48 PM CDT Bilateral leg pain from Last 3 Months Results * XR Hips Bilateral 3 or 4 Views (03/09/2025 3:48 PM CDT) Anatomical Region Laterality Modality Lower Extremities, Hip, Pelvis Bilateral D igital Radiography Narrative 03/10/2025 12:39 PM CDT Radiographs of the bilateral hips reviewed and interpreted. No acute fractures or destructive osseous lesions. Mild to moderate degenerative changes of the bilateral femoral acetabular joints and sacroiliac joints. Rebecca FARRELL IMG XR PROCEDURES Final Result from Last 3 Months Insurance AETNA [facility] HMO Care Teams Hat Liner Relationship Specialty Start Date End Date Ned Garcia MD [address] [place] [address] PCP - General Family Practice 02/22/25
--- OUTSIDE RECORDS SUMMARY | 2025-05-01 17:30 | XMS_ITS | Patient Health Record ---
Author Organization [facility] Address [address] [place], [place] [id number] Care Team Providers Care X Ray Equipment Servicer Name Role Phone Yandel Moody Unavailable Unavailable Allergies No Known Allergies Reason For Referral No Information Plan Of Treatment No Information Insurance Providers Payer Name Payer Address Payer Phone Subscriber Number Group Number Insured Name Patient Relationship to Insured Coverage Start Date Coverage End Date A[employer] [address] [place] [phone] [id number] LEIGH ANN QUINN Self - patient is the insured Medical (General) History Medical History History ICD Code acid reflux hypertension
--- OUTSIDE RECORDS SUMMARY | 2025-05-01 17:30 | XMS_ITS | Clinical Summary ---
Author Organization [facility] Address [address] [place] [id number] Care Team Providers Care Wind Energy Systems Installer Name Role Phone Tari Jane Primary Care Provider [phone] Allergies Active Allergy Reactions Criticality Noted Date Comments Penicillins Unknown 08/30/2020 Medications atorvastatin 20 MG tablet Take 20 mg by mouth daily. 0 Active pantoprazole EC 40 MG tablet Take 40 mg by mouth as needed. 0 Active phentermine 37.5 MG tabletIndications :Class 1 obesity due to excess calories without serious comorbidity with body mass index (BMI) of 30.0 to 30.9 in adult Take 1 tablet (37.5 mg total) by mouth daily. for 30 days 30 tablet 1 Active hydroCHLOROthiazi de (HYDRODIURIL) 25 MG tabletIndications :Primary hypertension TAKE 1 TABLET(25 MG) BY MOUTH EVERY MORNING 30 tablet 2 Active Active Problems No known active problems Immunizations Immunization Administration Dates Next Due Influenza (Generic) 04/15/2019 Influenza Adult (Generic) 02/21/2020,04/19/2018, 04/20/2015 PFIZER COVID-19 (ORIGINAL FO RMULATION, PURPLE CAP) mRNA, LNP-S, PF, 30 MCG/0.3 ML DOSE 08/12/2020 Shingrix 09/06/2019,06/14/2019 Family History Medical History Relation Comments Heart Attack Brother 1 S/p stents Hyperlipidemia Brother 1 Heart Attack Father S/p 4 stents and CABG Hyperlipidemia Father Hypertension Father Dementia Mother Relation Status Comments Brother 1 Alive Brother 2 Alive Father Alive Mother Alive Social History Tobacco Use Types Packs/Day Years Used Date Smoking Tobacco: Every Day Cigarettes Smokeless Tobacco: Never Tobacco Cessation:Ready to Q uit: No; Counseling Given: Yes Alcohol Use Standard Drinks/Week Comments Yes 0 (1 standard drink = 0.6 oz pur e alcohol) rare PHQ-2 Answer Date Recorded PHQ-2 Score - If the patient scores above 3, please move on to questions 3-9 1 05/15/2022 Sex and Gender Information Value Date Recorded Sex Assigned at Not on file Legal 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 Gender Identity Not on file Sexual Orientation Not on file Last Filed Vital Signs Vital Sign Reading Time Taken Comments Blood Pressure 156/74 05/30/2022 7:47 AM AERONAUTICAL ENGINEERING TECHNOLOGIST Pulse 84 05/15/2022 11:14 AM AERONAUTICAL ENGINEERING TECHNOLOGIST Temperature 37.1 C (98.7 F) 05/15/2022 11:14 AM AERONAUTICAL ENGINEERING TECHNOLOGIST Respiratory Rate 18 05/15/2022 11:14 AM AERONAUTICAL ENGINEERING TECHNOLOGIST Oxygen Saturation 100% 05/15/2022 11:14 AM AERONAUTICAL ENGINEERING TECHNOLOGIST Inhaled Oxygen Concentration - - Weight 97.1 kg (214 lb) 05/15/2022 11:14 AM AERONAUTICAL ENGINEERING TECHNOLOGIST Height 172.7 cm (5' 8) 05/15/2022 11:14 AM AERONAUTICAL ENGINEERING TECHNOLOGIST Body Mass Index 32.54 05/15/2022 11:14 AM AERONAUTICAL ENGINEERING TECHNOLOGIST Plan of Treatment Health Maintenance Due Date Last Done Comments Colorectal Cancer Screening Colonoscopy (10 Years) 1960 Hepatitis C 1978 Pneumococcal Vaccine: 50+ Years (2 of 2 - PCV) 03/09/2022 03/09/2021 DTaP, Tdap and Td Vaccines (2 - Td or Tdap) 04/04/2023 04/04/2013, 11/10/2005 Annual Physical 05/15/2023 05/15/2022 PHQ-2 (Physician Carter) 07/06/2024 COVID-19 Vaccine ( season) 2025 04/15/2022, 04/30/2021, 09/09/2020, Additional history exists Influenza Adult (#1) 2025 02/22/2020, 02/21/2020, 04/15/2019, Additional history exists RSV Immunization or 60+ Years (1 - 1-dose 75+ series) 10/19/2035 Zoster Vaccines Completed 09/06/2019, 06/14/2019 Hepatitis A Vaccines Aged Out No long er eligible based on patient's age to complete this topic Meningococcal B Vaccine Aged Out No l onger eligible based on patient's age to complete this topic Meningococcal Vaccine Aged Out No vonda sara eligible based on patient's age to complete this topic RSV Immunizations Under 20 Months Aged Out No longer eligible based on patient's age to complete this topic Insurance A[employer]NA Care Teams Wind Energy Systems Installer Relationship Specialty [place] [address] [place] [address] PCP - General PHYSICIAN WINDOW SHADE ESTIMATOR 08/30/20
[2025-05-01 17:52] LABS: EDCOVIDSCREEN Negative (Negative); EDINFLUASCREEN Negative (Negative); EDINFLUBSCREEN Negative (Negative)
--- NOTE | 2025-05-01 17:58 | ED.GENADULT ---
HPI - General Adult General Chief complaint: Upper Respiratory Infection Stated complaint: Cough / Congestion Source: patient Mode of arrival: ambulatory Limitations: no limitations History of Present Illness HPI narrative: Patient presents for evaluation of sick symptoms since last week. Symptoms include sinus congestion, thick yellow/ green drainage from the nares, sore throat, headache, fever, cough and diarrhea. His has similar symptoms but not to the degree of his symptoms. He has been taking mucinex, dayquil and nyquil without considerable improvement in his symptoms. He does smoke 1/2 ppd. Related Data Allergies Allergy/AdvReac Type Severity Reaction Status Date / Time Penicillins Allergy Mild Hives Verified 05/01/25 17:30 Review of Systems Review of Systems: CONSTITUTIONAL: Reports fever and fatigue EYES: Denies visual changes, redness, or discharge. ENT: Reports sinus congestion, thick yellow/green drainage from the nares and sore throat CARDIOVASCULAR: Denies chest pain, palpitations, or edema. RESPIRATORY: Reports cough. Denies SOB GASTROINTESTINAL: Reports diarrhea. Denies abdominal pain and vomiting GENITOURINARY: Denies dysuria or hematuria. SKIN: Denies rash or itching. MUSCULOSKELETAL: Denies back pain, joint pain, or myalgia. NEUROLOGIC: Reports headache. Denies numbness, dizziness, or weakness. PSYCHIATRIC: Denies anxiety or depression. [facility] Past Medical History Medical History Lumbar spine pain Foot drop, left Piriformis syndrome of left side Left hip pain Unspecified hemorrhoids without mention of complication Sciatica of right side Psychosexual dysfunction with inhibited sexual excitement Primary insomnia Polyp of colon Palpitations Benign neoplasm of colon Adjustment disorder with depressed mood Tobacco abuse High cholesterol Surgical History Surgical History No significant past surgical history Family History Family History Father Family history of elevated blood lipids Family history of cardiovascular disease Acute myocardial infarction Malignant neoplasm of prostate, Onset Age: 58 Grandparent Family history of cardiovascular disease, Onset Age: 60 Cerebrovascular accident Family history of lung cancer Sibling Malignant neoplasm of prostate, Onset Age: 52 Social History Social History Social History: caffeine - 4 cups coffee daily Smoking packs per day: 0.5 Smoking cigarettes per day: 10.0 Smoking status: Current every day smoker Tobacco type: cigarettes Alcohol intake: former Substance use: never Do You Feel Safe in your Home?: Yes Lack of Transportation: No Lack of Food: Never True Current Housing: I Have Housing Concerned About Future Housing: No Difficulty Paying Gas/Electric Bills: No Difficulty Paying for Meds: No Currently Unemployed: No Education: Bachelor's Degree Difficulty w/ Childcare or Family Care: No Living arrangements: with family Occupation/Education: occupation 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 EYES: PERRLA and EOMI. ENT: Nares clear, no rhinorrhea or epistaxis. Mucous membranes moist. Oropharynx without tonsillar hypertrophy exudate or other lesions. Bilateral TMs pearly mccauley nonbulging NECK: Supple. No adenopathy or masses. No carotid bruits or JVD CHEST: Cough present on exam. Clear to auscultation. No respiratory distress. No wheezes rales or rhonchi HEART: Regular rate and rhythm. No murmur heard. Normal peripheral pulses. ABDOMEN: Soft, nontender, nondistended, normal active bowel sounds. EXTREMITIES: Normal range of motion. No edema. SKIN: Warm, dry, no rash. NEURO: No focal deficits. Alert and oriented x3. PSYCH: Normal mood and affect. Course Course Emergency Course: This is a 64-year-old male who presented for evaluation of sick symptoms. His COVID and flu are negative. He meets criteria for bacterial sinusitis based upon mucopurulent nature of discharge. Will dc with doxycycline. Increase hydration. Recommend smoking cessation. Follow up with primary provider. Go to the ER for worsening symptoms. Pt in agreement with plan of care. Level of Care: Express Care Visit Vital Signs Vital signs: Vital Signs Temperature 37.0 C 05/01/25 17:29 Pulse Rate 102 H 05/01/25 17:29 Respiratory Rate 16 05/01/25 17:29 Blood Pressure 156/73 H 05/01/25 17:29 Pulse Oximetry 98 05/01/25 17:29 Oxygen Delivery Room Air 05/01/25 17:29 Temperature 37.0 C 05/01/25 17:29 Pulse Rate 102 H 05/01/25 17:29 Respiratory Rate 16 05/01/25 17:29 Blood Pressure 156/73 H 05/01/25 17:29 Pulse Oximetry 98 05/01/25 17:29 Oxygen Delivery Room Air 05/01/25 17:29 Medical Decision Making Vital Signs Vital Signs: Vital Signs Temperature 37.0 C 05/01/25 17:29 Pulse Rate 102 H 05/01/25 17:29 Respiratory Rate 16 05/01/25 17:29 Blood Pressure 156/73 H 05/01/25 17:29 Pulse Oximetry 98 05/01/25 17:29 Oxygen Delivery Room Air 05/01/25 17:29 Temperature 37.0 C 05/01/25 17:29 Pulse Rate 102 H 05/01/25 17:29 Respiratory Rate 16 05/01/25 17:29 Blood Pressure 156/73 H 05/01/25 17:29 Pulse Oximetry 98 05/01/25 17:29 Oxygen Delivery Room Air 05/01/25 17:29 Lab Data Labs: Lab Results 05/01/25 Range/Units 17:30 POC Influenza A Ag Negative (Negative) POC Influenza B Ag Negative (Negative) POC SARS CoV-2 Ag Negative (Negative) Discharge Plan Discharge Clinical Impression: Sinusitis Patient Disposition: Home Condition: Stable Instructions: Antibiotic Form, Sinusitis (ED) Patient Language: Moldovan Prescriptions: New doxycycline hyclate 100 mg capsule 100 mg PO BID Qty: 20 0RF No Action pantoprazole [Protonix] 40 mg tablet,delayed release (DR/EC) 40 mg PO DAILY PRN (Reason: Acid Reflux) Qty: 90 1RF amlodipine 5 mg tablet 5 mg PO DAILY Qty: 90 2RF atorvastatin 20 mg tablet 20 mg PO DAILY Qty: 90 2RF cholecalciferol (vitamin D3) 1,250 mcg (50,000 unit) tablet 1,250 mcg PO MONTHLY Qty: 14 1RF Follow-up/Referrals: Ned Garcia MD [Primary Care Provider, Family Practice] Time of Disposition: 17:57
== END 2025-05-01 17:59 | disposition home or self-care (01) ==
PROVIDERS: Emergency Provider Nurse Practitioner; PCP Family Medicine
DX: J32.9 Chronic sinusitis, unspecified (principal); Z20.822 Contact with and (suspected) exposure to COVID-19; F17.210 Nicotine dependence, cigarettes, uncomplicated; E78.00 Pure hypercholesterolemia, unspecified
CPT/HCPCS: 87426; 87804; 99213; G0463

== ENCOUNTER 2025-05-18 14:56 | Outpatient (CLI) | payer OTHER, SELFPAY ==
--- NOTE | ~2025-05-18 | XR_ITS ---
XR chest 2V HOSTORY: R06.02 - Shortness of breath COMPARISON:[ None] FINDINGS: Frontal and lateral views of the chest were obtained. The lungs are clear. The heart size is normal in size. Pulmonary vasculature is unremarkable. Osseous structures are intact. IMPRESSION: No acute lung findings.] [ ] Reviewed, dictated and finalized at location S. ION SPRING COILING MACHINE SETTER
== END 2025-05-18 14:57 | disposition home or self-care (01) ==
LOC: MICIMG 14:57
PROVIDERS: PCP Family Medicine; Visit Provider Family Medicine
DX: R06.02 Shortness of breath (principal)
CPT/HCPCS: 71046